=== PATIENT | female | born 1955 | race Caucasian/White ===

== ENCOUNTER 2020-04-22 07:03 | Inpatient (IN) ==
--- NOTE | 2020-03-28 14:46 | PAT Medication Instructions ---
Medication Instructions Date of Service March 28, 2020 Home Medications alprazolam [Xanax] 0.5 mg PO BID PRN cholecalciferol (vitamin D3) [Vitamin D3] 125 mcg PO QAM clonazepam [Klonopin] 1.5 mg PO HS conj estrog-medroxyprogest russel [Prempro] 1 tab PO QAM cyanocobalamin (vitamin B-12) [Vitamin B-12] 1,000 mcg PO QAM escitalopram oxalate [Lexapro] 10 mg PO QAM escitalopram oxalate [Lexapro] 20 mg PO QAM lisinopril 10 mg PO QAM metoprolol tartrate 50 mg PO BID simvastatin 40 mg PO HS tramadol 50 mg PO TID PRN ASK your prescriber and surgeon conj estrog-medroxyprogest russel [Prempro] 1 tab PO QAM (do not take AM of surgery if able to continue per surgeon) DO NOT take the morning of surgery lisinopril 10 mg PO QAM cyanocobalamin (vitamin B-12) [Vitamin B-12] 1,000 mcg PO QAM cholecalciferol (vitamin D3) [Vitamin D3] 125 mcg PO QAM Take morning of surgery With a small sip of water, OTHERWISE NOTHING TO EAT OR DRINK AFTER MIDNIGHT: escitalopram oxalate [Lexapro] metoprolol tartrate 50 mg PO BID tramadol 50 mg PO TID PRN (okay to take up to 4 hours prior to surgery if needed ) alprazolam [Xanax] 0.5 mg PO BID PRN (if needed) Take evening before surgery metoprolol tartrate 50 mg PO BID simvastatin 40 mg PO HS tramadol 50 mg PO TID PRN (if needed) clonazepam [Klonopin] 1.5 mg PO HS alprazolam [Xanax] 0.5 mg PO BID PRN (if needed) Other Notes If you have any questions please call us at [phone] or [phone] or [phone] or [phone]
--- NOTE | 2020-03-30 14:13 | Anesthesiology Consultation ---
Date of Service March 30, 2020 Assessment & Plan (1) Encounter for pre-operative examination: Chart Review Chart Review: Acceptable Risk for Surgery (pending 04/03 surgeon ordered clearance and Covid testing three days prior to surgery ) and Patient seen in Pre Admission Testing Pending surgeon ordered PCP clearance 04/03 Pt educated that she will need Covid testing done three days prior to surgery- surgeon's office states they will be contacting her in the near future. Educated she will need to strictly self quarantine and social distance from time of test to surgery date. Teaching & Discussion Pre-Anesthesia Teaching/Discussion Notes: Instructed NPO after midnight before surgery,except medications with 15 cc of water. Medication instructions provided according to the PAT guidelines. History Surgery Operation Date: 04/08/20 10:30 Proposed Procedures p Right Total Knee Arthroplasty - Heron Pablo DO Height/Weight Height: 5 ft 3 in Weight: 92.9 kg Allergies Allergy/AdvReac Type Severity Reaction Status Date / Time No Known Allergies Allergy Unverified 03/26/20 09:22 Medications Home Medications Medication Instructions Recorded Confirmed Last Taken alprazolam [Xanax] 0.5 mg PO BID PRN 03/26/20 03/26/20 Unknown cholecalciferol (vitamin D3) 125 mcg PO QAM 03/26/20 03/26/20 Unknown [Vitamin D3] clonazepam [Klonopin] 1.5 mg PO HS 03/26/20 03/26/20 Unknown conj estrog-medroxyprogest russel 1 tab PO QAM 03/26/20 03/26/20 Unknown [Prempro] cyanocobalamin (vitamin B-12) 1,000 mcg PO QAM 03/26/20 03/26/20 Unknown [Vitamin B-12] escitalopram oxalate [Lexapro] 10 mg PO QAM 03/26/20 03/26/20 Unknown escitalopram oxalate [Lexapro] 20 mg PO QAM 03/26/20 03/26/20 Unknown lisinopril 10 mg PO QAM 03/26/20 03/26/20 Unknown metoprolol tartrate 50 mg PO BID 03/26/20 03/26/20 Unknown simvastatin 40 mg PO HS 03/26/20 03/26/20 Unknown tramadol 50 mg PO TID PRN 03/26/20 03/26/20 Unknown Past Medical History Medical History Anxiety Degenerative disc disease Depression Fibromyalgia GERD (gastroesophageal reflux disease) Well controlled and stable History of esophageal dilatation Hyperlipidemia Hypertension Osteoarthritis Urinary leakage Exercise / Class Metabolic Activity II 4-5 Yardwork/Stairs/Walk up hill (no chest pain or SOB with one flight of stairs ) Past Family History Family History Other No family history of adverse response to anesthesia Past Surgical History Surgical History History of anesthesia reaction confusion, combative, fearful History of cholecystectomy History of colonoscopy History of esophagogastroduodenoscopy (EGD) History of foot surgery Left History of lumbar spinal fusion History of repair of hiatal hernia History of tonsillectomy History of tooth extraction History of tubal ligation Past Anesthesia History No Hx of Anesthesia Complications (with exception to combativeness and confusion post op ) and No Family Hx of Anesthesia Complications History of PONV No Hx of PONV and No Hx of Motion Sickness Social History Smoking Status: Current some day smoker tobacco type: cigarettes Smoking cigarettes per day: 1-3 cigarettes per day Do You Dip or Chew Tobacco: No Hx Alcohol Use: No Hx Substance Use: Yes substance use type: marijuana Substance Use Type Other:: medical marijuana Review of Systems Occ snoring- rare witnessed apnea- will be getting sleep study in future (will not be done prior to surgery) Patient denies chest pain, shortness of breath, dyspnea on exertion, reflux, cough, wheezing, palpitations. No hx of seizures, stroke, IN. No hx of blood clots or blood transfusions Physical Exam Vital Signs VITALS BP 137/78 P 51 TEMP 98.2 SP02 98% RESP 16 Constitutional no acute distress ENMT Mouth: no TMJ clicking Thyromental Distance: > or= 3.5 Finger Breadths (3.5) Mallampati Class: I Full dentues upper and lower Neck neck extension not limited Respiratory normal respiratory effort; no respiratory distress Auscultation: lungs clear to auscultation bilaterally; no wheezes Cardiovascular Rate/Rhythm: regular rate and regular rhythm Heart Sounds: no murmur Vessels: no carotid bruit Musculoskeletal Spine: no pain with cervical ROM Neurologic moves all extremities Psychiatric Orientation: alert Testing Laboratory Results 03/30/20 14:37 03/30/20 14:37 PT 10.7 Seconds (9.0-12.0) 03/30/20 14:37 INR 1.0 (0.9-1.1) 03/30/20 14:37 APTT 26.5 Seconds (21.0-31.0) 03/30/20 14:37 Hemoglobin A1c 5.5 % (4.5-5.6) 03/30/20 14:37 Urine Color Yellow 03/30/20 14:37 Urine Appearance Clear (Clear) 03/30/20 14:37 Urine pH 5.0 (4.5-7.5) 03/30/20 14:37 Ur Specific [place] 1.024 (1.000-1.030) 03/30/20 14:37 Urine Protein Negative (Negative) 03/30/20 14:37 Urine Glucose (UA) Negative (Negative) 03/30/20 14:37 Urine Ketones Negative (Negative) 03/30/20 14:37 Urine Nitrite Negative (Negative) 03/30/20 14:37 Ur Leukocyte Esterase Negative (Negative) 03/30/20 14:37 Urine WBC (Auto) 1-5 /hpf (0-5) 03/30/20 14:37 Urine RBC (Auto) 5-10 /hpf (0-4) H 03/30/20 14:37 U Hyaline Cast (Auto) 1-5 /lpf (0-5) 03/30/20 14:37 U Epithel Cells (Auto) >30 /lpf (0-5) H 03/30/20 14:37 Urine Bacteria (Auto) Negative (Negative) 03/30/20 14:37 Blood Type B Negative 03/30/20 14:37 Antibody Screen NEGATIVE 03/30/20 14:37 03/30/20 14:37 Urine Culture - Final Urine,Clean Catch Three types or organisms present, all moderate counts probable skin fauzia. No further identifications or sensitivities to follow. Electrocardiogram Date: 03/30/20 Findings: + SB @ (54) Chest X-Ray Date: 03/30/20 Findings: + NAD
[2020-03-30 15:01] LABS: Basophils # (auto) 0.05 K/uL (0-0.2); Basophils % (auto) 0.6 %; Eosinophils # (auto) 0.21 K/uL (0-0.5); Eosinophils % (auto) 2.4 %; Hematocrit (blood only) 43.4 % (37-47); Hemoglobin 13.8 g/dL (12.0-16.0); Immature Granulocytes # (auto) 0.01 K/uL (0.00-0.02); Immature Granulocytes % (auto) 0.1 %; Lymphocytes # (auto) 2.56 K/uL (1.2-3.4); Lymphocytes % (auto) 29.8 %; Mean Corpuscular Hemoglobin 30.6 pg (25-34); Mean Corpuscular Hgb Conc 31.8 g/dL (32-36); Mean Corpuscular Volume 96.2 fL (80-100); Mean Platelet Volume 12.1 fL (7.4-10.4); Monocytes # (auto) 0.61 K/uL (0.11-0.59); Monocytes % (auto) 7.1 %; Neutrophils # (auto) 5.16 K/uL (1.4-6.5); Platelet Count 301 K/uL (130-400); RDW Coefficient of Variation 13.4 % (11.5-14.5); RDW Standard Deviation 47.4 fL (36.4-46.3); Red Blood Count 4.51 M/uL (4.2-5.4)
--- NOTE | 2020-03-30 15:05 | XRay Report ---
XR chest Pre-admission PA/Lat CLINICAL HISTORY: Preoperative chest COMPARISON STUDY: 12/23/2014 FINDINGS: The cardiac and mediastinal contours are normal. There is no evidence of focal pulmonary co nsolidation. There is no evidence of failure. No pleural effusions are visualized.[ IMPRESSION: No active disease in the chest. ACT 112: Negative or not required by law. Electronically signed by: Raji Gates M.D. 03/30/2020 3:04 PM
[2020-03-30 15:17] LABS: Appearance Urine Clear (Clear); Bacteria Urine Automated Negative (Negative); Bilirubin Urine Negative (Negative); Blood Urine 2+ (Negative); Color Urine Yellow; Epithelial Cell Urine Auto >30 /lpf (0-5); Glucose Urine UA Negative (Negative); Ketones Urine Negative (Negative); Leukocyte Esterase Urine Negative (Negative); Nitrite Urine Negative (Negative); Protein Urine Negative (Negative); Specific Gravity Urine 1.024 (1.000-1.030); Urobilinogen Urine Negative (Negative)
[2020-03-30 15:18] LABS: Partial Thromboplastin Ratio 0.9; Partial Thromboplastin Time 26.5 Seconds (21.0-31.0); Prothrombin Time 10.7 Seconds (9.0-12.0)
[2020-03-30 15:23] LABS: Albumin Level 3.7 gm/dl (3.4-5.0); BUN Creatinine Ratio 8.7 (10-20); Calcium 9.4 mg/dl (8.5-10.1); Creatinine Clr Calc Pharmacy 52.8 ml/min; Est GFR (African American) 56.8; Potassium 4.1 mmol/L (3.5-5.1)
--- NOTE | 2020-03-30 15:34 | History & Physical Report ---
Date of Service March 30, 2020 date of surgery: 04-08-20 Assessment & Plan (1) Arthritis of right knee: Further care discussed with patient and at this point in time has failed conservative measures and would like to proceed with a Right total knee replacement. Plan on discharge will be home with home health physical therapy. DVT prophalaxis with TEDs, SCDs and will also place on aspirin 81 mg p.o. b.i.d. for a month postop. Patient will have follow up appointment in our office two weeks post op for staple/suture removal and re-evaluation. Patient otherwise has no other questions or concerns. History of Present Illness Chief Complaint: Right knee pain Primary Care Provider: Jag Granados Ms Garay is a 65 year old female who is here for a follow up of right knee pain, presents for pre-op evaluation prior to a right total knee replacement at [facility]. She presents with pain and stiffness in her right knee. She states that the symptoms have been chronic non-traumatic. Currently the patient states that the symptoms are moderate-severe. The pain is described as aching, sharp and throbbing. The symptoms are aggravated by ascending stairs, descending stairs, daily activities, driving, first steps while awake, kneeling, repetitive activities, sleeping on the affected side, squatting, standing and walking. In addition to right knee pain the patient is also experiencing limping, nighttime awakening and pain. She has been treated with previous injections, had Synvisc One in September, no relief. Allergies Allergy/AdvReac Type Severity Reaction Status Date / Time No Known Allergies Allergy Unverified 03/26/20 09:22 Home Medications Home Medications Medication Instructions Recorded Confirmed Type alprazolam [Xanax] 0.5 mg PO BID PRN 03/26/20 03/26/20 History cholecalciferol (vitamin D3) 125 mcg PO QAM 03/26/20 03/26/20 History [Vitamin D3] clonazepam [Klonopin] 1.5 mg PO HS 03/26/20 03/26/20 History conj estrog-medroxyprogest russel 1 tab PO QAM 03/26/20 03/26/20 History [Prempro] cyanocobalamin (vitamin B-12) 1,000 mcg PO QAM 03/26/20 03/26/20 History [Vitamin B-12] escitalopram oxalate [Lexapro] 10 mg PO QAM 03/26/20 03/26/20 History escitalopram oxalate [Lexapro] 20 mg PO QAM 03/26/20 03/26/20 History lisinopril 10 mg PO QAM 03/26/20 03/26/20 History metoprolol tartrate 50 mg PO BID 03/26/20 03/26/20 History simvastatin 40 mg PO HS 03/26/20 03/26/20 History tramadol 50 mg PO TID PRN 03/26/20 03/26/20 History Past Med/Surg History Medical History Anxiety Degenerative disc disease Depression Fibromyalgia GERD (gastroesophageal reflux disease) Well controlled and stable History of esophageal dilatation Hyperlipidemia Hypertension Osteoarthritis Urinary leakage Surgical History History of anesthesia reaction confusion, combative, fearful History of cholecystectomy History of colonoscopy History of esophagogastroduodenoscopy (EGD) History of foot surgery Left History of lumbar spinal fusion History of repair of hiatal hernia History of tonsillectomy History of tooth extraction History of tubal ligation Family History Other No family history of adverse response to anesthesia Social History Preferred Language: French Communication Ability: Effective Riding Double Required: No Beliefs That Will Affect Care: None Current Living Situation: Spouse Other Information That Helps Us Care for You: No Feels Safe at Home: Yes Safety Concerns: Feels Safe At This Time Smoking Status: Current some day smoker Tobacco Type: cigarettes ; Cigarettes Per Day: 1-3 cigarettes per day ; Do You Dip or Chew Tobacco: No ; Second Hand Exposure: Yes (as a child) ; Tobacco Cessation Education Requested by Patient: No Hx Alcohol Use: No Hx Substance Use: Yes substance use type: marijuana Substance Use Type Other:: medical marijuana Review of Systems Review of Systems: All systems reviewed & are unremarkable except as noted in HPI & below Constitutional: no fever, no chills and no sweats Respiratory: no cough and no dyspnea Cardiovascular: no chest pain, no dyspnea and no orthopnea Gastrointestinal: no abdominal pain, no nausea and no vomiting Musculoskeletal: as per Subjective / HPI Physical Exam Physical Exam: Ht: 5ft 3in Wt: 92.9kg BP: 126/82 Constitutional: WD/WN, vitals as above no acute distress Respiratory: normal respiratory effort, lungs clear to auscultation no respiratory distress, no labored breathing and does not use accessory muscles Cardiovascular: RRR, no murmur, no edema Gastrointestinal (Abdomen): normal bowel sounds, soft, nontender, no hepatosplenomegaly Musculoskeletal: Knee: + knee abnormal to inspection (Right Knee- ), + effusion (+1 effusion), + limited ROM of knee (ROM 0/3/110), + knee ROM with crepitation, + joint line tenderness (medial joint line) and + Dinh's sign positive; no deformity, no skin erythema, no ecchymosis, no valgus laxity, no varus laxity, anterior drawer test negative, Sandy's sign negative and pivot shift test negative Results & Data Results & Data ([facility]) Laboratory Results Laboratory Results WBC 8.60 K/uL (4.8-10.8) 03/30/20 14:37 RBC 4.51 M/uL (4.2-5.4) 03/30/20 14:37 Hgb 13.8 g/dL (12.0-16.0) 03/30/20 14:37 Hct 43.4 % (37-47) 03/30/20 14:37 MCV 96.2 fL (80-100) 03/30/20 14:37 MCH 30.6 pg (25-34) 03/30/20 14:37 MCHC 31.8 g/dL (32-36) L 03/30/20 14:37 RDW Std Deviation 47.4 fL (36.4-46.3) H 03/30/20 14:37 RDW Coeff of [place]att 13.4 % (11.5-14.5) 03/30/20 14:37 Plt Count 301 K/uL (130-400) 03/30/20 14:37 MPV 12.1 fL (7.4-10.4) H 03/30/20 14:37 Immature Gran % (Auto) 0.1 % 03/30/20 14:37 Neut % (Auto) 60.0 % 03/30/20 14:37 Lymph % (Auto) 29.8 % 03/30/20 14:37 [place] % (Auto) 7.1 % 03/30/20 14:37 Eos % (Auto) 2.4 % 03/30/20 14:37 Baso % (Auto) 0.6 % 03/30/20 14:37 Immature Gran # (Auto) 0.01 K/uL (0.00-0.02) 03/30/20 14:37 Neut # (Auto) 5.16 K/uL (1.4-6.5) 03/30/20 14:37 Lymph # (Auto) 2.56 K/uL (1.2-3.4) 03/30/20 14:37 [place] # (Auto) 0.61 K/uL (0.11-0.59) H 03/30/20 14:37 Eos # (Auto) 0.21 K/uL (0-0.5) 03/30/20 14:37 Baso # (Auto) 0.05 K/uL (0-0.2) 03/30/20 14:37 PT 10.7 Seconds (9.0-12.0) 03/30/20 14:37 INR 1.0 (0.9-1.1) 03/30/20 14:37 APTT 26.5 Seconds (21.0-31.0) 03/30/20 14:37 PTT Ratio 0.9 03/30/20 14:37 Sodium 140 mmol/L (136-145) 03/30/20 14:37 Potassium 4.1 mmol/L (3.5-5.1) 03/30/20 14:37 Chloride 108 mmol/L (98-107) H 03/30/20 14:37 Carbon Dioxide 26 mmol/L (21-32) 03/30/20 14:37 Anion Gap 6.0 (3-11) 03/30/20 14:37 BUN 10 mg/dl (7-18) 03/30/20 14:37 Creatinine 1.18 mg/dl (0.6-1.2) 03/30/20 14:37 Est Cr Clr Drug Dosing 52.8 ml/min 03/30/20 14:37 Est GFR ( Amer) 56.8 03/30/20 14:37 Est GFR (Non-Af Amer) 49.0 03/30/20 14:37 BUN/Creatinine Ratio 8.7 (10-20) L 03/30/20 14:37 Glucose 95 mg/dl (70-99) 03/30/20 14:37 Calcium 9.4 mg/dl (8.5-10.1) 03/30/20 14:37 Albumin 3.7 gm/dl (3.4-5.0) 03/30/20 14:37 Urine Color Yellow 03/30/20 14:37 Urine Appearance Clear (Clear) 03/30/20 14:37 Urine pH 5.0 (4.5-7.5) 03/30/20 14:37 Ur Specific [place] 1.024 (1.000-1.030) 03/30/20 14:37 Urine Protein Negative (Negative) 03/30/20 14:37 Urine Glucose (UA) Negative (Negative) 03/30/20 14:37 Urine Ketones Negative (Negative) 03/30/20 14:37 Urine Blood 2+ (Negative) H 03/30/20 14:37 Urine Nitrite Negative (Negative) 03/30/20 14:37 Urine Bilirubin Negative (Negative) 03/30/20 14:37 Urine Urobilinogen Negative (Negative) 03/30/20 14:37 Ur Leukocyte Esterase Negative (Negative) 03/30/20 14:37 Urine WBC (Auto) 1-5 /hpf (0-5) 03/30/20 14:37 Urine RBC (Auto) 5-10 /hpf (0-4) H 03/30/20 14:37 U Hyaline Cast (Auto) 1-5 /lpf (0-5) 03/30/20 14:37 U Epithel Cells (Auto) >30 /lpf (0-5) H 03/30/20 14:37 Urine Bacteria (Auto) Negative (Negative) 03/30/20 14:37 Diagnostic Findings Right Knee X-ray: Right knee series showing degenerative changes to the right knee, narrowing of the medial compartment and patello-femoral joint with patellar spurring noted, findings showing joint space narrowing of the medial compartment and patello- femoral joint, osteophyte formation and subchondral sclerosis noted. overall varus alignment. no acute bony pathology noted.
[2020-03-31 06:05] LABS: Estimated Average Glucose 111 mg/dl; Hemoglobin A1C 5.5 % (4.5-5.6)
--- NOTE | 2020-03-31 06:09 | Electrocardiogram Report ---
Test Reason : Blood Pressure : / mmHG Vent. Rate : 054 BPM Atrial Rate : 054 BPM P-R Int : 132 ms QRS Dur : 092 ms QT Int : 502 ms P-R-T Axes : 072 052 020 degrees QTc Int : 476 ms Sinus bradycardia Otherwise normal ECG When compared with ECG of 23-DEC-2014 12:50, No significant change was found Confirmed by Vasquez Joseph ([id number]) on 03/31/2020 6:08:35 AM Referred By: Heron Pablo Confirmed By:Vasquez Joseph
[~2020-04-22 07:03] MED LIST: ACETAMINOPHEN 500 MG TAB PO SCH; BUPIVACAINE LIPOSOME/PF 266 MG, BUPIVACAINE/EPINEPHRINE 50 ML, SODIUM CHLORIDE 0.9% 30 ... INFIL SCH; CEFAZOLIN 2000MG 2,000 MG/15 ML SYR IV SCH; CeleBREX 200 MG CAP PO SCH; FAMOTIDINE 20 MG TAB PO SCH; GABAPENTIN 600 MG DOSE PO SCH; LR 500ML BOLUS, THEN 15ML/HR IV SCH; METOCLOPRAMIDE HCL 10 MG TABLET PO SCH; ROPIVACAINE 0.5% HCL/PF 150 MG, BUPIVACAINE 0.5% MPF 30 ML, EPINEPHrine 30MG/30ML (OR U... INFIL SCH; ROPIVACAINE 0.5% HCL/PF 150 MG, BUPIVACAINE 0.5% MPF 30 ML, EPINEPHrine 30MG/30ML (OR U... INSTIL SCH; TRANEXAMIC ACID 1,000 MG **IV Intra-op IV SCH; TRANEXAMIC ACID 1,000 MG **IV Pre-op IV SCH; dexAMETHasone 4 MG TAB PO SCH
[2020-04-22] MEDS ORDERED: ROPIVACAINE 0.5% 5 MG/ML 30 ML VIAL ONE (07:33)
[2020-04-22] MEDS ORDERED: EPINEPHrine INJ 1 MG/ML AMP ONE (07:33)
[2020-04-22] MEDS ORDERED: BUPIVACAINE 0.5 % 5 MG/1 ML PF 10ML VIAL ONE (07:33)
[2020-04-22] MEDS ORDERED: LIDOCAINE HCL 2% 2 ML VIAL/AMP(20MG/ML) INFIL ONE (07:34)
[2020-04-22] MEDS ORDERED: fentaNYL citrate 100 MCG/2 ML VIAL ONE (07:34)
[2020-04-22] MEDS ORDERED: PROPOFOL IV EMULSION 10 MG/ML 20 ML VIAL IV ONE ×2 (07:34→10:16)
[2020-04-22] MEDS ORDERED: MIDAZOLAM HCL 1 MG/ML 2ML VIAL ONE (07:35)
[2020-04-22] MEDS ORDERED: MEPERIDINE HCL 25 MG/ML CARP/VIAL IV PRN (08:20)
[2020-04-22] MEDS ORDERED: LABETALOL HCL IV 5 MG/ML 20ML IV PRN (08:20)
[2020-04-22] MEDS ORDERED: fentaNYL citrate 100 MCG/2 ML VIAL IV PRN (08:20)
[2020-04-22] MEDS ORDERED: ATROPINE SULFATE 0.1 MG/ML 10ML SYR IV PRN (08:20)
[2020-04-22] MEDS ORDERED: ONDANSETRON INJ 2 MG/ML 2 ML VIAL IV PRN ×2 (08:20→13:27)
[2020-04-22] MEDS ORDERED: PHENYLEPHRINE 100MCG/ML 5ML SYR IV PRN (08:20)
[2020-04-22] MEDS ORDERED: HYDROmorphone INJ 1 MG/ML SYRINGE IV PRN ×2 (08:20→13:27)
[2020-04-22] MEDS ORDERED: ePHEDrine sulfate 50 MG/ML AMP IV PRN (08:20)
--- NOTE | 2020-04-22 08:29 | History & Physical Bridge Note ---
Date of Service April 22, 2020 History & Physical Bridge Note I have examined the patient, reviewed the History & Physical and in the interval since the performance of the History & Physical I have noted the following changes of clinical significance: no changes noted
[2020-04-22] MEDS ORDERED: ORTHO JOINT ANESTHETIC ONE (09:05)
[2020-04-22] MEDS ORDERED: BACITRACIN INJ 50,000 UNIT VIAL ONE (09:05)
[2020-04-22] MEDS ORDERED: KETAMINE HCL INJ 50 MG/ML 10 ML VIAL ONE (09:56)
--- NOTE | 2020-04-22 10:41 | Operative Report ---
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 [employer] Long Estimated Blood Loss 5 Findings Consistent with Post-Op Diagnosis Patient presents with severe end-stage DJD varus alignment subchondral sclerosis marginal osteophytes eburnated bone moderate to large effusion Specimens Bone and cartilage Drains Medium bore Hemovac Anesthesia Type MAC Spinal Regional Complications none Disposition Accompanied Patient To Recovery: No Disposition: Recovery Room Indications Patient presents with severe end-stage DJD no response to conservative management clinic physical therapy anti-inflammatories relative rest activity modification corticosteroid injections above intraoperative findings are noted time surgery. Description of Procedure After proper prepping and draping of the Right lower extremity anterior midline incision was made over the region of the extensor extensor mechanism after meticulous hemostasis was obtained and maintained in subcutaneous tissues a medial parapatellar incision was made The patella was subluxed lateralward the medial lateral gutter were cleaned from any hypertrophic synovitis and scar tissue of the distal femoral block was placed and the distal femoral osteotomy cut was made subsequently the chamfers anterior and posterior osteotomy cuts were made utilizing the 4-in-1 block the tibia was subsequently subluxed anteriorward medial and ateral meniscal remnants were excised in their entirety remnants of the anterior and posterior cruciate ligaments were excised in their entirety excellent exposure of the proximal tibia was obtained the tibial osteotomy guide was placed on the proximal tibial osteotomy cut was made once again the knee was irrigated with copious amounts of sterile saline solution the patella was subsequently everted lateralward thickened scar tissue around the p atella was removed the patella was subsequently cut utilizing a freehand technique and was drilled prepared for final preparation and placement of patella socially flexion-extension gaps were checked and the equal and symmetric trials were placed to the appropriate femoral and tibial trials with poly-spacer being placed for equal flexion and extension gaps and full range of motion including extension to 0 and flexion to 140 the trial components after having been taken to recovery range of motion was subsequently removed meticulous hemostasis was obtained and maintained subsequently a knee block injection of joint cocktail including ropivacaine 0.5% 150 mg. Bupivacaine 0.5% epinephrine 1-200,030 mL's toradol 30 mg dexamethasone 4 mg ketamine 10 mg clonidine 100 micrograms normal saline solution 30 mg was infiltrated into the soft tissues of the posterior knee medial lateral gutters and periosteal synovium special attention was paid to protect neurovascular structures at all times subsequently trial components having been removed the knee was irrigated with sterile saline solution. debris was removed the proximal tibia was subsequently prepared and was made ready for the placement of the tibial component tibial component was also cemented and tamped into position the femoral component was subsequently placed and cemented in the position the patellar component was subsequently cemented in position because hemostasis once again obtained and maintained wound having been thoroughly irrigated with debridement and debridement lavage was performed as well as a medial parapatellar incision closed with #1 Vicryl in interrupted fashion subcutaneous was closed with #2 Vicryl skin was closed with skin clips. PA-C was necessary for prepping and drapping as well as wound closure of deep fascia Sub cutaneous tissue and skin and was necessary for the case. A sterile compressive dressing was placed patient was taken to recovery in stable condition of report dictated by Samy I attest to the content of the Intraoperative Record and any orders documented therein. Any exceptions are noted below. I attest to the content of the Intraoperative Record and any orders documented therein. Any exceptions are noted below.
--- NOTE | 2020-04-22 11:56 | XRay Report ---
XR knee RT 1 or 2V routine CLINICAL HISTORY: Postoperative evaluation. COMPARISON: None FINDINGS: Alignment of the total right knee arthroplasty is anatomic. There is no fracture or unexpe cted radiopaque foreign body. There are surgical drains. IMPRESSION: Expected findings following total right knee arthroplasty. ACT 112: Negative or not required by law. Electronically signed by: Joe Ovalle M.D. 04/22/2020 11:55 AM
--- NOTE | 2020-04-22 12:50 | Anesthesiology Progress Note ---
Date of Service April 22, 2020 Anesthesia Post Procedure Vital Signs Vital Signs: Temp Pulse Pulse Resp BP Pulse Ox 04/22/20 12:45 61 15 130/70 95 04/22/20 12:35 36.5 C 63 19 155/82 H 98 04/22/20 12:25 58 L 15 133/69 100 04/22/20 12:15 60 17 154/79 H 100 04/22/20 12:05 62 19 148/73 H 100 04/22/20 11:55 65 18 147/71 H 100 04/22/20 11:45 63 16 149/75 H 100 04/22/20 11:35 74 17 147/65 H 100 04/22/20 11:27 36.4 C L 79 15 138/75 100 04/22/20 07:44 36.6 C 56 L 20 157/79 H 100 Pain Intensity Right Knee: Pain Intensity: 1 Transfer of Care Handoff Completed per policy Notes Mental Status: alert / awake / arousable Patient Amnestic to Procedure: Yes Nausea / Vomiting: adequately controlled Pain: adequately controlled Airway Patency, RR, SpO2: stable & adequate BP & HR: stable & adequate Hydration State: stable & adequate Neuraxial Anesthesia: was administered and sensory block is resolving Anesthetic Complications: no major complications apparent and Pt Satisfied with anesthetic care
[2020-04-22] MEDS ORDERED: bisacodyL 10 MG SUPP PR PRN (13:27)
[2020-04-22] MEDS ORDERED: NALOXONE HCL 0.4 MG/1 ML VIAL/CARP IV PRN (13:27)
[2020-04-22] MEDS ORDERED: METOCLOPRAMIDE HCL INJ 5 MG/ML 2 ML VIAL IV PRN (13:27)
[2020-04-22] MEDS ORDERED: ALPRAZolam 0.5 MG TABLET PO PRN (13:27)
[2020-04-22] MEDS ORDERED: MAGNESIUM HYDROXIDE SUSP 30 ML UDC PO PRN (13:27)
[2020-04-22] MEDS: KETOROLAC 30 MG/ML VIAL IV SCH ×2 (14:34→19:36)
[2020-04-22] MEDS: ACETAMINOPHEN 500 MG TAB PO SCH ×2 (14:34→21:23)
[2020-04-22] MEDS: SODIUM CHLORIDE 0.9% 1000ML 1,000 ML IV SCH (15:55)
[2020-04-22] MEDS: CEFAZOLIN 2000MG 2,000 MG/15 ML SYR IV SCH (17:42)
[2020-04-22] MEDS: METOPROLOL TARTRATE 50 MG TAB PO SCH (21:22)
[2020-04-22] MEDS: SIMVASTATIN 40 MG TAB PO SCH (21:23)
[2020-04-22] MEDS: SENNA 8.6 MG TAB PO SCH (21:23)
[2020-04-22] MEDS: ASPIRIN 81 MG ECTAB PO SCH (21:23)
[2020-04-22] MEDS: DOCUSATE SODIUM 100 MG CAP PO SCH (21:23)
[2020-04-22] MEDS: clonazePAM 1 MG TAB PO SCH (22:46)
[2020-04-23] MEDS: SODIUM CHLORIDE 0.9% 1000ML 1,000 ML IV SCH (01:34)
[2020-04-23] MEDS: CEFAZOLIN 2000MG 2,000 MG/15 ML SYR IV SCH (01:36)
[2020-04-23] MEDS: KETOROLAC 30 MG/ML VIAL IV SCH ×2 (01:36→08:41)
[2020-04-23] MEDS: ACETAMINOPHEN 500 MG TAB PO SCH ×3 (05:21→21:39)
[2020-04-23 05:35] LABS: Hematocrit (blood only) 38.2 % (37-47); Hemoglobin 12.7 g/dL (12.0-16.0); Mean Corpuscular Hemoglobin 30.8 pg (25-34); Mean Corpuscular Hgb Conc 33.2 g/dL (32-36); Mean Corpuscular Volume 92.5 fL (80-100); Mean Platelet Volume 11.7 fL (7.4-10.4); Platelet Count 251 K/uL (130-400); RDW Standard Deviation 43.7 fL (36.4-46.3); Red Blood Count 4.13 M/uL (4.2-5.4); White Blood Count 17.26 K/uL (4.8-10.8)
[2020-04-23 06:10] LABS: BUN Creatinine Ratio 12.1 (10-20); Calcium 8.6 mg/dl (8.5-10.1); Creatinine Clr Calc Pharmacy 45.2 ml/min; Est GFR (Non-African American) 40.6; Potassium 4.5 mmol/L (3.5-5.1)
--- NOTE | 2020-04-23 06:35 | Orthopedic Progress Note ---
Date of Service April 23, 2020 Assessment & Plan (1) History of total right knee replacement: POD #1 s/p right TKA pt/ot dvt proph with STEPHANIE/SCD/ASA plan for d/c home with HHPT when stable Admission and Anticipated Discharge Date Admission Date: April 22, 2020 Subjective POD #1 s/p Right TKA Review of Systems Constitutional: no fever, no chills and no sweats Respiratory: no cough and no dyspnea Cardiovascular: no chest pain and no dyspnea Gastrointestinal: no abdominal pain, no nausea and no vomiting Physical Exam Physical Exam: Vital Signs Temp Pulse Pulse Resp BP BP Pulse Ox 04/23/20 03:57 36.5 C 74 15 146/79 H 95 04/22/20 23:47 36.7 C 62 16 132/74 95 04/22/20 21:21 36.6 C 57 L 18 110/67 95 04/22/20 16:56 36.6 C 65 18 131/71 96 04/22/20 15:18 36.3 C L 68 16 111/67 95 04/22/20 14:20 36.7 C 67 16 115/71 95 04/22/20 13:50 36.7 C 70 16 119/74 95 04/22/20 13:20 36.7 C 61 18 114/71 95 04/22/20 13:00 63 14 129/64 94 04/22/20 12:45 61 15 130/70 95 04/22/20 12:35 36.5 C 63 19 155/82 H 98 04/22/20 12:25 58 L 15 133/69 100 04/22/20 12:15 60 17 154/79 H 100 04/22/20 12:05 62 19 148/73 H 100 04/22/20 11:55 65 18 147/71 H 100 04/22/20 11:45 63 16 149/75 H 100 04/22/20 11:35 74 17 147/65 H 100 04/22/20 11:27 36.4 C L 79 15 138/75 100 04/22/20 07:44 36.6 C 56 L 20 157/79 H 100 Intake and Output 04/22/20 04/22/20 04/23/20 14:59 22:59 06:59 Intake Total 1425 / 3740 350 / 3740 1965 / 3740 Output Total 55 / 805 425 / 805 325 / 805 Balance 1370 / 2935 -75 / 2935 1640 / 2935 Intake: IV 700 / 2665 1965 / 2665 Lr 1,000 ml @ 15 mls/hr IV . 500 / 500 Q24H [facility] Rx#:[id number] Nss 1000ML 1,0 00 ml @ 100 mls/ 1964 / 1964 hr IV .Q10H [facility] Rx#:[id number] TRANEXAMIC ACI D / 0.7% NACL 1, 200 / 200 000 mg In 100 ml @ 600 mls/hr IV TODAY@0600 [facility] Rx#:[id number] IV Perioperative 600 / 600 Oral 125 / 475 350 / 475 Output: Urine 300 / 550 250 / 550 Estimated Blood Loss 5 / 5 Drain Output 50 / 250 125 / 250 75 / 250 Right Knee Hem ovac 50 / 250 125 / 250 75 / 250 Other: # Unmeasured Voi ds 1 Weight 93.1 kg Patient Weight 04/23/20 06:59 Weight 93.1 kg Constitutional: WD/WN, vitals as above no acute distress Musculoskeletal: Right Leg: NVDI, calf SNT, negative charly sign. DP palpable, able to wiggle toes/ankle movement without difficulty. dressing clean dry and intact. Results & Data ([facility]) Vital Signs (Past 12 Hours) Vital Signs Temp Pulse Resp BP BP Pulse Ox 04/23/20 03:57 36.5 C 74 15 146/79 H 95 04/22/20 23:47 36.7 C 62 16 132/74 95 04/22/20 21:21 36.6 C 57 L 18 110/67 95 Laboratory Results Laboratory Results WBC 17.26 K/uL (4.8-10.8) H 04/23/20 05:14 RBC 4.13 M/uL (4.2-5.4) L 04/23/20 05:14 Hgb 12.7 g/dL (12.0-16.0) 04/23/20 05:14 Hct 38.2 % (37-47) 04/23/20 05:14 MCV 92.5 fL (80-100) 04/23/20 05:14 MCH 30.8 pg (25-34) 04/23/20 05:14 MCHC 33.2 g/dL (32-36) 04/23/20 05:14 RDW Std Deviation 43.7 fL (36.4-46.3) 04/23/20 05:14 RDW Coeff of Wyatt 13.0 % (11.5-14.5) 04/23/20 05:14 Plt Count 251 K/uL (130-400) 04/23/20 05:14 MPV 11.7 fL (7.4-10.4) H 04/23/20 05:14 Immature Gran % (Auto) 0.1 % 03/30/20 14:37 Neut % (Auto) 60.0 % 03/30/20 14:37 Lymph % (Auto) 29.8 % 03/30/20 14:37 Gage % (Auto) 7.1 % 03/30/20 14:37 Eos % (Auto) 2.4 % 03/30/20 14:37 Baso % (Auto) 0.6 % 03/30/20 14:37 Immature Gran # (Auto) 0.01 K/uL (0.00-0.02) 03/30/20 14:37 Neut # (Auto) 5.16 K/uL (1.4-6.5) 03/30/20 14:37 Lymph # (Auto) 2.56 K/uL (1.2-3.4) 03/30/20 14:37 Gage # (Auto) 0.61 K/uL (0.11-0.59) H 03/30/20 14:37 Eos # (Auto) 0.21 K/uL (0-0.5) 03/30/20 14:37 Baso # (Auto) 0.05 K/uL (0-0.2) 03/30/20 14:37 PT 10.7 Seconds (9.0-12.0) 03/30/20 14:37 INR 1.0 (0.9-1.1) 03/30/20 14:37 APTT 26.5 Seconds (21.0-31.0) 03/30/20 14:37 PTT Ratio 0.9 03/30/20 14:37 Sodium 141 mmol/L (136-145) 04/23/20 05:14 Potassium 4.5 mmol/L (3.5-5.1) 04/23/20 05:14 Chloride 113 mmol/L (98-107) H 04/23/20 05:14 Carbon Dioxide 23 mmol/L (21-32) 04/23/20 05:14 Anion Gap 5.0 (3-11) 04/23/20 05:14 BUN 17 mg/dl (7-18) 04/23/20 05:14 Creatinine 1.38 mg/dl (0.6-1.2) H 04/23/20 05:14 Est Cr Clr Drug Dosing 45.2 ml/min 04/23/20 05:14 Est GFR ( Amer) 47.0 04/23/20 05:14 Est GFR (Non-Af Amer) 40.6 04/23/20 05:14 BUN/Creatinine Ratio 12.1 (10-20) 04/23/20 05:14 Glucose 131 mg/dl (70-99) H 04/23/20 05:14 Estimat Average Glucose 111 mg/dl 03/30/20 14:37 Hemoglobin A1c 5.5 % (4.5-5.6) 03/30/20 14:37 Calcium 8.6 mg/dl (8.5-10.1) 04/23/20 05:14 Albumin 3.7 gm/dl (3.4-5.0) 03/30/20 14:37 Urine Color Yellow 03/30/20 14:37 Urine Appearance Clear (Clear) 03/30/20 14:37 Urine pH 5.0 (4.5-7.5) 03/30/20 14:37 Ur Specific [place] 1.024 (1.000-1.030) 03/30/20 14:37 Urine Protein Negative (Negative) 03/30/20 14:37 Urine Glucose (UA) Negative (Negative) 03/30/20 14:37 Urine Ketones Negative (Negative) 03/30/20 14:37 Urine Blood 2+ (Negative) H 03/30/20 14:37 Urine Nitrite Negative (Negative) 03/30/20 14:37 Urine Bilirubin Negative (Negative) 03/30/20 14:37 Urine Urobilinogen Negative (Negative) 03/30/20 14:37 Ur Leukocyte Esterase Negative (Negative) 03/30/20 14:37 Urine WBC (Auto) 1-5 /hpf (0-5) 03/30/20 14:37 Urine RBC (Auto) 5-10 /hpf (0-4) H 03/30/20 14:37 U Hyaline Cast (Auto) 1-5 /lpf (0-5) 03/30/20 14:37 U Epithel Cells (Auto) >30 /lpf (0-5) H 03/30/20 14:37 Urine Bacteria (Auto) Negative (Negative) 03/30/20 14:37 Blood Type B Negative 03/30/20 14:37 Antibody Screen NEGATIVE 03/30/20 14:37 Diagnostic Findings XR knee RT 1 or 2V routine CLINICAL HISTORY: Postoperative evaluation. COMPARISON: None FINDINGS: Alignment of the total right knee arthroplasty is anatomic. There is no fracture or unexpected radiopaque foreign body. There are surgical drains. IMPRESSION: Expected findings following total right knee arthroplasty.
[2020-04-23] MEDS: ESCITALOPRAM OXALATE 10 MG TAB PO SCH (08:41)
[2020-04-23] MEDS: DOCUSATE SODIUM 100 MG CAP PO SCH ×2 (08:41→21:39)
[2020-04-23] MEDS: ASPIRIN 81 MG ECTAB PO SCH ×2 (08:41→21:36)
[2020-04-23] MEDS: ESCITALOPRAM OXALATE 20 MG TAB PO SCH (08:42)
[2020-04-23] MEDS: MULTIVITAMIN TAB PO SCH (08:42)
[2020-04-23] MEDS: lisinopriL 10 MG TAB PO SCH (08:42)
[2020-04-23] MEDS: CHOLECALCIFEROL 1,000 UNITS 25 MCG TAB PO SCH (08:43)
[2020-04-23] MEDS: CYANOCOBALAMIN 500 MCG TABLET (VITAMIN B-12) PO SCH (08:44)
[2020-04-23] MEDS: METOPROLOL TARTRATE 50 MG TAB PO SCH ×2 (08:46→21:38)
[2020-04-23] MEDS ORDERED: ALUMINUM/MAGNESIUM SUSP 30 ML UDC PO PRN (12:48)
[2020-04-23] MEDS: OXYCODONE HCL IR 5 MG TAB (IMMEDIATE RELEASE) PO PRN ×2 (12:52→21:47)
[2020-04-23] MEDS: CeleBREX 200 MG CAP PO SCH (21:38)
[2020-04-23] MEDS: SIMVASTATIN 40 MG TAB PO SCH (21:39)
[2020-04-23] MEDS: SENNA 8.6 MG TAB PO SCH (21:40)
[2020-04-23] MEDS: clonazePAM 1 MG TAB PO SCH (21:47)
[2020-04-24] MEDS: ACETAMINOPHEN 500 MG TAB PO SCH (05:12)
[2020-04-24] MEDS: CeleBREX 200 MG CAP PO SCH (08:33)
[2020-04-24] MEDS: CYANOCOBALAMIN 500 MCG TABLET (VITAMIN B-12) PO SCH (08:33)
[2020-04-24] MEDS: ASPIRIN 81 MG ECTAB PO SCH (08:33)
[2020-04-24] MEDS: ESCITALOPRAM OXALATE 10 MG TAB PO SCH (08:33)
[2020-04-24] MEDS: METOPROLOL TARTRATE 50 MG TAB PO SCH (08:33)
[2020-04-24] MEDS: MULTIVITAMIN TAB PO SCH (08:33)
[2020-04-24] MEDS: DOCUSATE SODIUM 100 MG CAP PO SCH (08:34)
[2020-04-24] MEDS: lisinopriL 10 MG TAB PO SCH (08:34)
[2020-04-24] MEDS: ESCITALOPRAM OXALATE 20 MG TAB PO SCH (08:34)
--- NOTE | 2020-04-24 09:31 | Orthopedic Progress Note ---
Date of Service April 24, 2020 Assessment & Plan (1) History of total right knee replacement: POD #2 s/p right TKA pt/ot dvt proph with STEPHANIE/SCD/ASA plan for d/c home with HHPT today. Admission and Anticipated Discharge Date Admission Date: April 22, 2020 Subjective Patient sitting up in bed eating breakfast. No complaints this morning. Pain controlled. Denies any shortness of breath, chest pain, lightheadedness. Physical Exam Physical Exam: Incision is clean, dry, and intact. Calves are soft and nontender. Neurovascular is intact. Toes are mobile. Results & Data ([facility]) Vital Signs (Past 12 Hours) Vital Signs Temp Pulse Pulse Resp BP Pulse Ox 04/24/20 07:22 36.6 C 54 L 16 130/73 96 04/23/20 23:04 36.8 C 65 16 126/75 96
[2020-04-24] MEDS: CHOLECALCIFEROL 1,000 UNITS 25 MCG TAB PO SCH (09:32)
--- NOTE | 2020-04-26 19:31 | Discharge Summary ---
Date of Service date of discharge: April 24, 2020 date of admission: 04-22-20 Admission HPI Per Admitting Provider Ms Garay is a 65 year old female who is here for a follow up of right knee pain, presents for pre-op evaluation prior to a right total knee replacement at [facility]. She presents with pain and stiffness in her right knee. She states that the symptoms have been chronic non-traumatic. Currently the patient states that the symptoms are moderate-severe. The pain is described as aching, sharp and throbbing. The symptoms are aggravated by ascending stairs, descending stairs, daily activities, driving, first steps while awake, kneeling, repetitive activities, sleeping on the affected side, squatting, standing and walking. In addition to right knee pain the patient is also experiencing limping, nighttime awakening and pain. She has been treated with previous injections, had Synvisc One in September, no relief. Principal Diagnosis right knee arthritis Discharge Exam Vital Signs Temp 36.6 C 04/24/20 09:37 Pulse 65 04/24/20 09:37 Resp 16 04/24/20 09:37 BP 110/67 04/24/20 09:37 Pulse Ox 96 04/24/20 09:37 Constitutional WD/WN, vitals as above no acute distress Musculoskeletal right knee: NVDI, calf SNT, negative charly sign. DP palpable, able to wiggle toes/ankle movement without difficulty. Preneo dressing clean dry and intact. expected post-operative bruising noted. Discharge Data Allergies Allergy/AdvReac Type Severity Reaction Status Date / Time No Known Allergies Allergy Unverified 04/22/20 07:37 Consultations 04/22/20 13:27 Consult Case Management - Discharge Planning Routine Procedures Performed Operation Date: 04/22/20 09:40 Actual Procedures p Right Total Knee Arthroplasty(Right) - Heron Pablo DO Ordered Studies 04/08/20 05:00 US - OR guided needle placemen Routine 04/22/20 05:00 US - OR guided needle placemen Routine Hospital Course (1) History of total right knee replacement: POD #2 s/p right TKA pt/ot dvt proph with STEPHANIE/SCD/ASA plan for d/c home with HHPT Laboratory Results WBC 17.26 K/uL (4.8-10.8) H 04/23/20 05:14 RBC 4.13 M/uL (4.2-5.4) L 04/23/20 05:14 Hgb 12.7 g/dL (12.0-16.0) 04/23/20 05:14 Hct 38.2 % (37-47) 04/23/20 05:14 MCV 92.5 fL (80-100) 04/23/20 05:14 MCH 30.8 pg (25-34) 04/23/20 05:14 MCHC 33.2 g/dL (32-36) 04/23/20 05:14 RDW Std Deviation 43.7 fL (36.4-46.3) 04/23/20 05:14 RDW Coeff of Wyatt 13.0 % (11.5-14.5) 04/23/20 05:14 Plt Count 251 K/uL (130-400) 04/23/20 05:14 MPV 11.7 fL (7.4-10.4) H 04/23/20 05:14 Immature Gran % (Auto) 0.1 % 03/30/20 14:37 Neut % (Auto) 60.0 % 03/30/20 14:37 Lymph % (Auto) 29.8 % 03/30/20 14:37 [place] % (Auto) 7.1 % 03/30/20 14:37 Eos % (Auto) 2.4 % 03/30/20 14:37 Baso % (Auto) 0.6 % 03/30/20 14:37 Immature Gran # (Auto) 0.01 K/uL (0.00-0.02) 03/30/20 14:37 Neut # (Auto) 5.16 K/uL (1.4-6.5) 03/30/20 14:37 Lymph # (Auto) 2.56 K/uL (1.2-3.4) 03/30/20 14:37 [place] # (Auto) 0.61 K/uL (0.11-0.59) H 03/30/20 14:37 Eos # (Auto) 0.21 K/uL (0-0.5) 03/30/20 14:37 Baso # (Auto) 0.05 K/uL (0-0.2) 03/30/20 14:37 PT 10.7 Seconds (9.0-12.0) 03/30/20 14:37 INR 1.0 (0.9-1.1) 03/30/20 14:37 APTT 26.5 Seconds (21.0-31.0) 03/30/20 14:37 PTT Ratio 0.9 03/30/20 14:37 Sodium 141 mmol/L (136-145) 04/23/20 05:14 Potassium 4.5 mmol/L (3.5-5.1) 04/23/20 05:14 Chloride 113 mmol/L (98-107) H 04/23/20 05:14 Carbon Dioxide 23 mmol/L (21-32) 04/23/20 05:14 Anion Gap 5.0 (3-11) 04/23/20 05:14 BUN 17 mg/dl (7-18) 04/23/20 05:14 Creatinine 1.38 mg/dl (0.6-1.2) H 04/23/20 05:14 Est Cr Clr Drug Dosing 45.2 ml/min 04/23/20 05:14 Est GFR ( Amer) 47.0 04/23/20 05:14 Est GFR (Non-Af Amer) 40.6 04/23/20 05:14 BUN/Creatinine Ratio 12.1 (10-20) 04/23/20 05:14 Glucose 131 mg/dl (70-99) H 04/23/20 05:14 Estimat Average Glucose 111 mg/dl 03/30/20 14:37 Hemoglobin A1c 5.5 % (4.5-5.6) 03/30/20 14:37 Calcium 8.6 mg/dl (8.5-10.1) 04/23/20 05:14 Albumin 3.7 gm/dl (3.4-5.0) 03/30/20 14:37 Urine Color Yellow 03/30/20 14:37 Urine Appearance Clear (Clear) 03/30/20 14:37 Urine pH 5.0 (4.5-7.5) 03/30/20 14:37 Ur Specific [place] 1.024 (1.000-1.030) 03/30/20 14:37 Urine Protein Negative (Negative) 03/30/20 14:37 Urine Glucose (UA) Negative (Negative) 03/30/20 14:37 Urine Ketones Negative (Negative) 03/30/20 14:37 Urine Blood 2+ (Negative) H 03/30/20 14:37 Urine Nitrite Negative (Negative) 03/30/20 14:37 Urine Bilirubin Negative (Negative) 03/30/20 14:37 Urine Urobilinogen Negative (Negative) 03/30/20 14:37 Ur Leukocyte Esterase Negative (Negative) 03/30/20 14:37 Urine WBC (Auto) 1-5 /hpf (0-5) 03/30/20 14:37 Urine RBC (Auto) 5-10 /hpf (0-4) H 03/30/20 14:37 U Hyaline Cast (Auto) 1-5 /lpf (0-5) 03/30/20 14:37 U Epithel Cells (Auto) >30 /lpf (0-5) H 03/30/20 14:37 Urine Bacteria (Auto) Negative (Negative) 03/30/20 14:37 Blood Type B Negative 03/30/20 14:37 Antibody Screen NEGATIVE 03/30/20 14:37 Total Time Total Time Spent Total Time Spent (In Minutes): 20 Total Time Includes: Examination of the Patient, Discharge Planning and Medication Reconciliation Discharge Plan Discharge Items Patient Disposition: Home - Home Health Services Reason For Visit: Right Knee Osteoarthritis Discharge Diagnosis: right total knee replacement Activity: Per Instructions section Lifting: Wait until after follow-up appointment Exercise/Sports: Wait until after follow-up appointment Weightbearing Comment: WBAT with walker Non-emergency contact: Surgeon Call non-emergency contact if: you have any medication questions, your pain is worsening, your temperature is above 101, your wound has increased redness, your wound has increased drainage and your wound pain has increased Follow-up/Referrals: Jag Granados M.D. [Primary Care Provider] - Addtl Attending Provider Instructions: ACTIVITY RECOMMENDATIONS: SELF CARE INSTRUCTIONS AFTER TOTAL KNEE REPLACEMENT A. You may need to continue a physical therapy program after discharge from the hospital. There are several options available to you. Your doctor will assist you in selecting the best one for you. 1. An out-patient facility 2 to 3 times a week for therapy or home therapy. 2. Continue working on all exercises taught to you in the hospital. Your goals should be to increase bending of your knee to 90 degrees and beyond and to fully straighten your knee. B. You may progress at your own pace from walking with a walker or crutches to a cane; then to no assistive devices. C. Make walking a part of your daily routine. Be up as much as comfortable with rest periods throughout the day. Rest with leg elevation is very important. Use the ice wrap frequently for the first 3-4 weeks. D. There are no restrictions on activities. You may ride in a car, shop, participate in tube knitter and all social activities. E. Wear the long elastic stockings (STEPHANIE hose) 20 hours a day for 2 weeks after surgery. They can be removed several times a day for laundering and for a bath. F. You may shower, no tub baths until cleared by your doctor. SPECIAL CARE INSTRUCTIONS: VERY IMPORTANT TO READ AND REVIEW A. There are a few signs you need to watch for after you are home. Call [facility] [place] if you notice any of the followin. Increased severe knee pain. Some pain is expected especially when you exercise. 2. Increased swelling in your leg or knee; pain or swelling of the calf muscle in either lower leg. 3. Any fluid drainage from the incision. 4. Shortness of breath or chest pain. B. Please call [facility] at if you have any concerns or questions about your operation or recovery. The doctor or his nurse will return your call promptly. C. You must take antibiotics before dental work, bladder, bowel or other surgery. Your doctor will provide you with a permanent care to carry describing this precaution. IMPORTANT: * REMEMBER TO TAKE ASPIRIN, 81 MG, TWICE DAILY FOR 4 WEEKS UNLESS OTHERWISE DIRECTED. THIS IS YOUR BLOOD THINNER. * HIGH RISK PATIENTS MAY BE PRESCRIBED A STRONGER BLOOD THINNER. THIS WILL BE PROVIDED AT DISCHARGE. * CALL IF INCREASED PAIN, REDNESS, DRAINAGE OR FEVER GREATER THAT 101. * WEAR STEPHANIE HOSE 20 HOURS PER DAY FOR 2 WEEKS. * DERMABOND Prineo- This is a mesh tape dressing that is covered with glue. It should remain in place until the incision is properly healed, usually 10-14 days. This dressing is designed to naturally slough off. You may trim the excess mesh tape as it peels off. Incision may be briefly wet in a shower. Dry immediately by blotting with a clean, dry towel. Do not bath or swim until instructed by your doctor. Do not scratch, rub, or pick at the dressing. Do not apply any topical ointments or lotions until dressing is completely removed and/or instructed by your doctor. There may be a small piece of suture material at one end of your incision. Do not pull or trim this. If it is bothersome or catching on clothing, you may cover it with a band-aid. IF INCISION IS LEAKING THROUGH DRESSING, CALL THE OFFICE . FOLLOW UP VISIT: If appointment is not already scheduled: Please call [facility] [place] to make a follow-up appointment for 2 weeks after your surgery at . Stand-Alone Forms: My [facility] [place], Smoking Cessation Medications and DC Order Prescriptions: New sennosides [Senokot] 8.6 mg Tablet 17.2 mg PO HS Qty: 30 RF: 0 aspirin 81 mg Tablet,Delayed Release (Dr/Ec) 81 mg PO BID 30 Days Qty: 60 RF: 0 acetaminophen 500 mg Tablet 1,000 mg PO Q8 14 Days Qty: 84 RF: 0 oxycodone 5 mg Tablet 5 mg PO Q4H MDD 6 PRN (Reason: pain) Qty: 30 RF: 0 Continued clonazepam [Klonopin] 1 mg Tablet 1.5 mg PO HS RF: 0 cyanocobalamin (vitamin B-12) [Vitamin B-12] 1,000 mcg Tablet 1,000 mcg PO QAM RF: 0 simvastatin 40 mg Tablet 40 mg PO HS RF: 0 alprazolam [Xanax] 0.5 mg Tablet 0.5 mg PO BID PRN (Reason: Anxiety) RF: 0 lisinopril 10 mg Tablet 10 mg PO QAM RF: 0 metoprolol tartrate 50 mg Tablet 50 mg PO BID RF: 0 escitalopram oxalate [Lexapro] 10 mg Tablet 10 mg PO QAM RF: 0 escitalopram oxalate [Lexapro] 20 mg Tablet 20 mg PO QAM RF: 0 Prempro 0.3-1.5 mg Tablet 1 tab PO QAM RF: 0 cholecalciferol (vitamin D3) [Vitamin D3] 125 mcg (5,000 unit) Tablet 125 mcg PO QAM RF: 0 Discontinued tramadol 50 mg Tablet 50 mg PO TID PRN (Reason: Pain) RF: 0 Discharge Orders: Discharge Order (Routine); Ordered 04/24/20 Ordered By: Darryl Jules Admission Data Admit Date/Time: 04/22/20 11:31 Attending Provider: Heron Pablo Admit Provider: Heron Pablo Primary Care Provider: Jag Granados Other Interventions: Discharge Summary Assessment (RN) Last Done: 04/24/20 09:37 DC Date/Time DO NOT enter until pt leaves facility: 04/24/20 12:24
== END 2020-04-24 12:24 | disposition home or self-care (01) | DRG 470 ==
LOC: ASU 07:03 → 3E 11:31